=== PATIENT | female | born 1970 | race Caucasian/White ===

== ENCOUNTER 2016-12-24 12:00 | Inpatient (IN) | payer BC ==
--- NOTE | ~2016-12-24 | DS ---
Unit #: [id number] #: [id number] Patient: ONELIA KING [id number] [place] [address] [id number] MR#: [id number] NAME: ONELIA KING ROOM: [facility] Age: 46 Sex: F Admission Date: 12/24/2016 : 1970 Discharge Date: 12/26/2016 Attending Physician: Eddie Morales M.D. Primary Care Physician: Primary Care Physician No DISCHARGE SUMMARY REASON FOR ADMISSION The patient is a 38-year-old white female, admitted following an ingestion of sedative hypnotic medication. HOSPITAL COURSE The patient was admitted to the -[facility] unit and placed on suicide precautions. She was continued on previously prescribed Prozac and other home medications were continued. No medication changes were undertaken during the patient's brief stay in the hospital as her symptoms appear to be mainly reactive nature. She was extremely regretful and future oriented when seen by this physician on 12/25/2016. She sustained progress on 12/26/2016. Discharge was ordered. FINAL DIAGNOSES Major depressive disorder, recurrent, moderate; hypothyroidism, status post alprazolam ingestion. DISPOSITION ON DISCHARGE The patient is discharged on the following medications: Prozac 60 mg daily for depression, Synthroid 0.15 mg once daily for hypothyroidism, Robaxin 750 mg b.i.d. for muscle relaxation, Zithromax 250 mg once daily for upper respiratory infection, Motrin 400 mg q.6 hours p.r.n. pain, and Deltasone 40 mg once daily for upper respiratory infection. DISCHARGE INSTRUCTIONS No dietary or physical restrictions were placed upon the patient at the time of discharge. FOLLOWUP Followup will take place through the auspices of providers in the [place], [place] area. PROGNOSIS The patient's prognosis is considered good. Dictated by... Eddie Morales M.D. CB/jordi TD: 12/26/2016 14:47 JOB #: [id number] Unit #: [id number] #: [id number] Patient: ONELIA KING DISCHARGE SUMMARY Page 1 of 1 X Eddie Morales MD DISCHARGE SUMMARY
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
--- NOTE | ~2016-12-24 | HP ---
Unit #: [id number] #: [id number] Patient: ONELIA KING [id number] [place] [address] [id number] MR#: [id number] NAME: ONELIA KING ROOM: P261 Age: 46 Sex: F Admission Date: 12/24/2016 : 1970 Attending Physician: Eddie Morales M.D. Admitting Physician: Eddie Morales M.D. Primary Care Physician: Primary Care Physician No HISTORY AND PHYSICAL HISTORY OF PRESENT ILLNESS Onelia is a 46 year old admitted to [address] [place] [address] with depression and after an overdose of benzodiazepines. She is transferred to [facility] from [place] for continued care. PAST MEDICAL HISTORY Hypothyroidism. PAST SURGICAL HISTORY Nothing reported. ALLERGIES No known drug allergies. SOCIAL HISTORY Smokes on occasion. Drinks wine occasionally and denies illicit drug use. FAMILY HISTORY Medically noncontributory. REVIEW OF SYSTEMS CONSTITUTIONAL: No fever or chills. HEENT: Denies any sore throat, ear pain or runny nose. CARDIOVASCULAR: Denies chest pain, irregular heart rhythm or palpitations. CHEST: Denies shortness of breath or cough. No hemoptysis. GASTROINTESTINAL: Denies nausea, vomiting, diarrhea or chronic constipation. ENDOCRINE: Denies history of increased thirst or urination. No recent significant weight loss or gain. GENITOURINARY: Denies dysuria, frequency, or hematuria. SKIN: Denies any rashes. HEMATOLOGIC: Denies history of increased bleeding or bruising. MUSCULOSKELETAL: Denies any hot, swollen joints. No generalized muscle pain. NEUROLOGIC: Denies problems with vision or speech. No frequent, severe headaches. No numbness, tingling or weakness in any extremities. Denies loss of bladder or bowel control. CURRENT MEDICATIONS 1. Milk of Magnesia p.r.n. 2. Maalox p.r.n. 3. Tylenol p.r.n. 4. Motrin p.r.n. Unit #: [id number] #: [id number] Patient: ONELIA KING 5. Methocarbamol 750 mg b.i.d. p.r.n. 6. Synthroid 0.15 mg daily. 7. Prozac 60 mg daily. PHYSICAL EXAMINATION GENERAL: Alert, obese, no apparent distress. VITAL SIGNS: Blood pressure 130/82, heart rate 78, respirations 16, temperature 98.6. WEIGHT: 190. HEIGHT: 5 feet 6 inches. SKIN: Warm and dry without rash or lesion. HEENT: Normocephalic. TMs not viewed. Oral and nasal passages clear. Conjunctivae clear. PERRLA. EOMs intact. NECK: Supple without lymphadenopathy or thyromegaly. HEART: Regular rate and rhythm without murmur. LUNGS: Clear. ABDOMEN: Soft, nontender. : Not done. EXTREMITIES: No evidence of cyanosis, clubbing or edema. Moves all without focal deficit. NEUROLOGICAL: Grossly within normal limits. Cranial Nerves: II: Visual lindquist are intact. III, IV AND : Extraocular movements are intact. Pupils are equal, round and reactive to light. V: Facial sensation is grossly normal. VII: Facial movements and expression are normal. VIII: Auditory acuity grossly intact. IX, X: Uvula is midline. Phonation is normal. XI: Patient shrugs shoulders and turns head normally. XII: Tongue protrudes in the midline. Sensory and Motor Function: Sensory and motor sensation is grossly normal. Motor: moves all extremities well. Coordination: Gait is normal. Deep Tendon Reflexes: Intact. IMPRESSION Psychiatric admission. RECOMMENDATIONS PSYCHIATRIC: Per psychiatrist. MEDICAL: See no contraindication to participate in facility's activities. MEDICAL PROGNOSIS Good. MEDICAL CONDITION Stable. Dictated by... Diana Pedro P.A.-C. for Gladis Centeno/may TD: 12/25/2016 18:12 JOB #: [id number] Unit #: [id number] #: [id number] Patient: ONELIA KING HISTORY AND PHYSICAL Page 1 of 1 X Diana Pedro HISTORY AND PHYSICAL
[2016-12-25 09:38] LABS: BASOPHIL# 0.1 X10e3 (0-0.3); BASOPHIL% 1.3 % (0-2.5); EOSINOPHIL# 0.3 X10e3 (0-0.7); EOSINOPHIL% 3.4 % (0.0-7.0); HEMATOCRIT 41.8 % (35.0-45.0); HEMOGLOBIN 13.5 gm/dL (12.0-16.0); LYMPHOCYTE# 3.3 X10e3 (1.0-3.5); MEAN CELL VOLUME 92.6 FL (83-96); MEAN CORPUSCULAR HGB CONC 32.4 g/dL (30-36); MEAN PLATELET VOLUME 8.9 FL (6.5-11.5); MONOCYTE# 0.5 X10e3 (0-1.0); MONOCYTE% 5.8 % (3.0-12.0); NEUTROPHIL# 4.5 X10e3 (1.5-7.1); NEUTROPHIL% 51.5 % (40-75); PLATELET COUNT 363 X10e3 (140-420); RED BLOOD COUNT 4.51 X10e (3.90-5.30); WHITE BLOOD COUNT 8.8 X10e3 (4.0-10.5)
[2016-12-25 10:04] LABS: ALBUMIN SERUM 3.8 g/dL (3.5-5.0); BILIRUBIN,TOTAL 0.5 mg/dL (0.2-2.0); BUN/CREATININE RATIO 18.88; CALCIUM SERUM 8.8 mg/dL (8.4-10.2); CREATININE SERUM 0.9 mg/dL (0.6-1.4); GLOM FILT RATE Estimated 75.7 mL/min (>60); POTASSIUM 4.5 mmol/L (3.5-5.1); PROTEIN TOTAL SERUM 6.2 g/dL (6.0-8.3)
[2016-12-25 10:05] LABS: DIFF IND NO
== END 2016-12-26 13:40 | disposition home or self-care (01) | DRG 885 ==
LOC: EDBD 17:45 → P2L 17:45
PROVIDERS: Specialist
DX: F33.1 Major depressive disorder, recurrent, moderate (principal); R45.851 Suicidal ideations; E03.9 Hypothyroidism, unspecified; J06.9 Acute upper respiratory infection, unspecified; Z72.0 Tobacco use
CPT/HCPCS: 80053; 85025